=== PATIENT | male | born 1950 | race Caucasian/White ===

== ENCOUNTER → 2016-05-01 | Outpatient (CLI) | payer OTHER, BC ==
[~2016-05-01] MED LIST: COMPAZINE10 MG PO; FENTANYL1 EAC1 TD; FOSINOPRIL SODI20 MG PO; GEMFIBROZIL600 MG PO; MIRALAX17 GM PO; MOVANTIK25 MG PO; NIFEDIPINE ER30 MG PO; OMEPRAZOLE40 M1 PO; ONDANSETRON HCL4 MG PO; OXYCODONE HCL10 MG PO; PRILOSEC20 MG PO; TAMSULOSIN HCL0.4 MG PO; TOPROL XL50 MG PO; ULTRAM50 MG PO; ZANAFLEX4 M1 PO
== END | disposition home or self-care (01) ==
LOC: OPR 09:38 → EDSTATUS 10:00 → OPR 10:00
PROC: 0FB03ZX Excision of Liver, Percutaneous Approach, Diagnostic (ICD-10-PCS; principal; 2016-05-01)
DX: R93.2 Abnormal findings on diagnostic imaging of liver and biliary tract (principal); R93.3 Abnormal findings on diagnostic imaging of other parts of digestive tract; R10.33 Periumbilical pain; K59.00 Constipation, unspecified; R12 Heartburn; R11.0 Nausea
CPT/HCPCS: 77012; J3010

== ENCOUNTER → 2016-09-05 | Outpatient (CLI) | payer OTHER, BC ==
[~2016-09-05] VITALS: Ht 182.9 cm; Wt 104.8 kg
[~2016-09-05] MED LIST changes: +BENTYL10 MG PO
[2016-09-05 09:13] LABS: MCH 28.1 PG (29.0-34.0); MCHC 34.3 G/DL (30.0-36.0); MCV 82.1 FL (86-99); MEAN PLAT.VOLUME 9.3 uM^3 (9.0-12.4); PLATELET COUNT 271 K/uL (156-360); RBC DIS.WIDTH-CV 13.4 % (11.8-14.6); RBC DIS.WIDTH-SD 39.8 % (39-53); RED BLOOD COUNT 4.87 M/uL (4.00-5.50)
[2016-09-05 09:32] LABS: PROTHROMBIN TIME 10.3 (9.2-11.2); PTT 27.6 (25-32)
== END | disposition home or self-care (01) ==
LOC: OPR 08:17 → EDSTATUS 09:00 → OPR 09:00
PROVIDERS: Specialist
DX: K75.9 Inflammatory liver disease, unspecified (principal); K76.0 Fatty (change of) liver, not elsewhere classified; R11.0 Nausea; K21.9 Gastro-esophageal reflux disease without esophagitis; I10 Essential (primary) hypertension; E66.9 Obesity, unspecified; Z68.31 Body mass index [BMI] 31.0-31.9, adult
CPT/HCPCS: 77012; 85027; 85610; 85730; 88305; 88312; J3010

== ENCOUNTER 2017-01-30 04:24 | Emergency (ER) | payer OTHER, BC ==
[~2017-01-30] VITALS: Ht 180.3 cm; Wt 103.8 kg
[2017-01-30 06:19] LABS: EOSINOPHIL (%) 1.9 % (0-5); EOSINOPHIL COUNT 0.2 K/uL (0-0.3); IMMATURE GRANULOCYTE (%) 0.5 % (0.0-0.7); INSTRUMENT ABS NEUTROPHIL CT 5.5 K/uL; LYMPHOCYTE COUNT 2.2 K/uL (1.0-2.8); MCHC 33.6 G/DL (30.0-36.0); MCV 86.4 FL (86-99); MEAN PLAT.VOLUME 9.4 uM^3 (9.0-12.4); MONOCYTE (%) 6.9 % (3-12); MONOCYTE COUNT 0.6 K/uL (0-0.8); NEUTROPHIL (%) 64.7 % (45-76); NEUTROPHIL COUNT 5.5 K/uL (1.8-6.4); PLATELET COUNT 240 K/uL (156-360); RBC DIS.WIDTH-CV 12.9 % (11.8-14.6); RBC DIS.WIDTH-SD 40.5 % (39-53); RED BLOOD COUNT 4.86 M/uL (4.00-5.50); WHITE BLOOD COUNT 8.4 K/uL (4.1-10.2)
[2017-01-30 06:30] LABS: CHLORIDE 105 mEq/L (99-109); POTASSIUM 3.8 mEq/L (3.7-5.4); SODIUM 138 mEq/L (136-147)
[2017-01-30 06:32] LABS: GLUCOSE 86 mg/dL (70-99)
[2017-01-30 06:34] LABS: ANION GAP 6 MEQ/L (2-14); TOTAL BILIRUBIN 0.5 mg/dL (0.0-1.0)
[2017-01-30 06:36] LABS: ALKALINE PHOSPHATASE 73 IU/L (3-129); GFR ESTIMATE (CALCULATED) > 59 mL/min/
[2017-01-30 06:37] LABS: UREA NITROGEN (BUN) 15 mg/dL (9-23)
[2017-01-30 06:39] LABS: LIPASE 80 U/L (1.0-51.0)
[2017-01-30 06:47] LABS: ADD MIUA? NO; BILIRUBIN NEGATIVE; BLOOD NEGATIVE; COLOR YELLOW ((YELLOW)); GLUCOSE (STRIP) NEGATIVE; KETONES NEGATIVE; LEUKOCYTES NEGATIVE; NITRITE NEGATIVE; PROTEIN (STRIP) NEGATIVE; SPECIFIC GRAVITY 1.009 (1.000-1.030); UCUL ADDED? NO; UROBILINOGEN 0.2 MG/DL (0.2-1.0)
[2017-01-30] MEDS ORDERED: COLACE100 MG PO (08:35)
[2017-01-30] MEDS ORDERED: ZOFRAN ODT4 MG PO (08:35)
[2017-01-30 09:08] VITALS: BP 110/55
== END 2017-01-30 09:13 | disposition home or self-care (01) ==
LOC: EME 04:24
PROVIDERS: Emergency Medicine
DX: R10.9 Unspecified abdominal pain (principal); K57.10 Diverticulosis of small intestine without perforation or abscess without bleeding; R11.2 Nausea with vomiting, unspecified; K59.00 Constipation, unspecified; M54.9 Dorsalgia, unspecified; R68.83 Chills (without fever); K21.9 Gastro-esophageal reflux disease without esophagitis; F32.9 Major depressive disorder, single episode, unspecified; Z87.442 Personal history of urinary calculi; Z90.49 Acquired absence of other specified parts of digestive tract; Z79.891 Long term (current) use of opiate analgesic
CPT/HCPCS: 74177; 80053; 81003; 83690; 83735; 85025; 99281; 99285; J1885; J2405; J2765; J7030

== ENCOUNTER → 2017-04-17 | Outpatient (CLI) | payer OTHER, BC ==
[~2017-04-17] MED LIST changes: +COLACE100 MG PO; +ZOFRAN ODT4 MG PO
== END | disposition home or self-care (01) ==
LOC: NUC 06:52
DX: R93.3 Abnormal findings on diagnostic imaging of other parts of digestive tract (principal); R19.4 Change in bowel habit; R11.0 Nausea; K76.0 Fatty (change of) liver, not elsewhere classified
CPT/HCPCS: 78264; A9541